=== PATIENT | female | born 1980 | race Caucasian/White ===

== ENCOUNTER 2016-07-20 15:56 | Emergency (ER) | payer BC ==
[~2016-07-20] VITALS: Ht 157.5 cm; Wt 72.1 kg
[~2016-07-20 15:56] MED LIST: EXCEDRIN EXTRA1 EACH PO; FLAGYL500 MG PO; IMITREX100 MG PO; IMITREX6 MG/0.5 M SC; LEVAQUIN750 MG PO; MOTRIN600 MG PO; MOTRIN800 MG PO; NASONEX17 GM BOTH NARES; NORCO 7.5/321 TABLET PO; OXYCODONE HCL5 MG PO; PRENATAL TABLE1 EAC3 PO; PROBIOTIC1 EAC1 PO; PROVERA,CYCRIN10 MG PO; TOPAMAX50 MG PO
[2016-07-20 16:15] LABS: ADD MIUA? YES; BILIRUBIN NEGATIVE; BLOOD NEGATIVE; COLOR YELLOW ((YELLOW)); GLUCOSE (STRIP) NEGATIVE; KETONES NEGATIVE; LEUKOCYTES NEGATIVE; NITRITE NEGATIVE; PH, URINE 6.5 (5-8); PROTEIN (STRIP) NEGATIVE; SPECIFIC GRAVITY 1.025 (1.000-1.030)
[2016-07-20 17:10] LABS: HEMATOCRIT 41.9 % (36.0-46.0); MCHC 34.4 G/DL (30.0-36.0); MCV 87.3 FL (83-99); MEAN PLAT.VOLUME 10.5 uM^3 (9.5-12.4); PLATELET COUNT 260 K/uL (156-360); RBC DIS.WIDTH-SD 40.8 % (39-53); WHITE BLOOD COUNT 7.4 K/uL (4.1-10.2)
[2016-07-20 17:10] LABS: BACTERIA 1+; CASTS NONE SEEN /LPF; CRYSTALS NONE SEEN; EPITHELIAL CELLS 2+; MUCUS RARE; RED BLOOD CELLS NONE SEEN /HPF (0-5); UCUL ADDED? NO; WHITE BLOOD CELLS NONE SEEN /HPF (0-5)
[2016-07-20 17:28] LABS: CHLORIDE 103 mEq/L (99-109); POTASSIUM 3.8 mEq/L (3.7-5.4); SODIUM 137 mEq/L (136-147)
[2016-07-20 17:30] LABS: GLUCOSE 86 mg/dL (70-99)
[2016-07-20 17:32] LABS: ANION GAP 10 MEQ/L (2-14); TOTAL BILIRUBIN 0.4 mg/dL (0.0-1.0)
[2016-07-20 17:34] LABS: ALKALINE PHOSPHATASE 94 IU/L (3-129); GFR ESTIMATE (CALCULATED) > 59 mL/min/
[2016-07-20 17:35] LABS: UREA NITROGEN (BUN) 15 mg/dL (9-23)
[2016-07-20 17:37] LABS: LIPASE 30 U/L (1.0-51.0)
[2016-07-20 17:44] LABS: QUANTITATIVE HCG < 4.0 MIU/ML
[2016-07-20] MEDS ORDERED: BENTYL10 MG PO (20:16)
[2016-07-20] MEDS ORDERED: CARAFATE1 GM PO (20:16)
[2016-07-20 20:37] VITALS: BP 108/61
== END 2016-07-20 20:38 | disposition home or self-care (01) ==
LOC: EME 15:56
DX: R10.30 Lower abdominal pain, unspecified (principal); Z87.891 Personal history of nicotine dependence
CPT/HCPCS: 74176; 76856; 80053; 81003; 83690; 84702; 85027; 99281; 99284; J1170; J2405